=== PATIENT | male | born 1955 | race Caucasian/White ===

== ENCOUNTER → 2020-10-20 | Outpatient (CLI) | payer OTHER, MEDICARE ==
[~2020-10-20] VITALS: Ht 185.4 cm; Wt 83.9 kg
[~2020-10-20] MED LIST: ASA81BEC PO; LEVO-T25 MCG PO; LISINOPRIL20 MG PO; PROTONIX 20 MG20 MG PO; SUPER THERAVIT1 EACH PO
--- NOTE | 2020-10-20 07:19 | EKG ---
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
[2020-10-20 07:22] VITALS: BP 122/69
[2020-10-20 07:52] LABS: HEMATOCRIT 44.2 % (42.0-52.0); MCH 29.1 pg (26.0-34.0); MCHC 33.9 g/dL (28.0-37.0); RBC 5.14 mil/uL (4.50-6.00); RDW 12.8 % (10.5-14.5); WBC 4.6 thou/uL (4.0-11.0)
[2020-10-20 08:01] LABS: CALCIUM 8.6 mg/dL (8.5-10.1); CREATININE 1.2 mg/dL (0.7-1.3)
--- NOTE | 2020-10-20 17:52 | CATHLAB ---
[facility] [place] [address] INVASIVE PROCEDURE REPORT Name: BILLY DAVID Room #: REG JOHNATHON Sonja#: [id number] Admission: 10/20/20 Attend Phys: Juancho Sharp MD, Discharge: Date of : 53 Report #: [id number] THIS REPORT FOR: cc: Chris Mccauley Jeffrey W. DO Mancuso, Gerald M. MD [facility] ~ APPROVED REPORT Study performed: 10/20/2020 07:44:58 Patient Details Patient Status: Out-Patient Room #: The patient is a 65 year-old male Event Personnel Juancho Sharp Montessori Toddler Teacher, Eduard Johns RN RN, Berkley Fields RTR, ALIRIO Scrub, Nicole Garcia RTR Scrub, Steffen Chaudhary RTR Monitor Procedures Performed Art Access - R femoral artery* Left Heart Cath w/or w/o Coronaries [id number] [facility] [id number] Initial Mod Sed Same Phys/QHP Gr5y 415846 05937 Mod Sed Same Phys/QHP Ea 280500 Hemostasis w/ Mynx Abdominal Aortography 027425 Indication Positive stress test, Chest pain, Chest discomfort Procedure Narrative The Right Groin^ was infiltrated with 1% Lidocaine subcutaneous anesthesia. A PINNACLE 6FR Sheath #[id number] sheath was inserted into the RFA^. Coronary angiography was performed using coronary diagnostic catheters. The right coronary system was accessed and visualized with a JR4 catheter. The left coronary system was accessed and visualized with a JL4 catheter. The left ventricle was accessed and visualized with a PIGTIAL catheter. Left ventriculogram was performed in 30 degree projection. An aortogram of the abdominal aorta was performed. Closure device was deployed with a 6 Fr MYNXGRIP 6/7F #[id number]. Hemostasis was obtained with manual pressure following sheath removal without any complications. The patient tolerated the procedure well and there were no complications associated with the procedure. There was no hematoma. Intraoperative Conscious Sedation [facility] [address] [place] [address] INVASIVE PROCEDURE REPORT Name: BILLY DAVID Room #: [facility] [id number] Admission: 10/20/20 Attend Phys: Juancho Sharp, Discharge: Date of : 53 Report #: [id number] Sedation start time: 0908 Case end Time: 09 Fentanyl 50 mcg Versed 1 mg Fluoro Time: 1.50 minutes Dose: DAP 3177.50 cGycm2 390 mGy Contrast Type and Amount: Omnipaque 65 ml Hemodynamics The aortic pressure is 117/63 mmHg with a mean of 86 mmHg. The left ventricular pressure is 131/2 mmHg with a mean of mmHg. The left ventricular end diastolic pressure is 13 mmHg. Conclusion #1. Normal left jugular size and systolic function EF 60% #2 abdominal aortogram reveals mild irregularity but no aneurysm or significant stenosis. #3 normal coronary angiography with selective injections as stated above. No significant occlusive disease is noted this is a right dominant system. Diffuse distal disease and smaller attenuated distal vessels particularly noted in LAD distribution. No indication for intervention. Recommendations and plan: Continue aggressive risk factor modification. Follow-up scheduled with Dr. Mccauley. <ELECTRONICALLY SIGNED> By: Juancho Sharp MD, [facility] 10/20/201750 50 50 Juancho Sharp MD, FACC /INF
== END | disposition home or self-care (01) ==
LOC: CATH 06:44
PROVIDERS: ATTEND Internal Medicine Cardiovascular Disease
DX: R94.39 Abnormal result of other cardiovascular function study (principal); R07.9 Chest pain, unspecified; I25.10 Atherosclerotic heart disease of native coronary artery without angina pectoris; I10 Essential (primary) hypertension; E78.00 Pure hypercholesterolemia, unspecified; E03.9 Hypothyroidism, unspecified; K21.9 Gastro-esophageal reflux disease without esophagitis; Z98.890 Other specified postprocedural states; Z79.899 Other long term (current) drug therapy